=== PATIENT | female | born 1985 ===

== ENCOUNTER 2017-06-27 17:01 | Emergency (ER) | payer OTHER ==
[2017-06-27 17:16] VITALS: BMI 32.2
[2017-06-27 17:21] VITALS: TEMP 97.7; O2SAT 100
--- NOTE | 2017-06-27 17:31 | ED PDOC ---
Arrival/HPI - General Chief Complaint: Abdominal Pain Time Seen by Provider: 06/27/17 17:25 Historian: Patient - History of Present Illness Narrative History of Present Illness (Text): 06/27/17 17:26 32 y/o female, no significant pmh, nkda, approx. 4-5 weeks with LMP , c/o lower pelvic cramp and lower back pain x 1 week with no fall or trauma. Aching and cramping sensation, no sexual activities for the past 4 weeks, no vaginal bleeding or discharge, no blood clots, no chest pain or shortness or breath, no other medical or psychological complaints. Past Medical History - Provider Review Nursing Documentation Reviewed: Yes - Infectious Disease Hx of Infectious Diseases: None - Psychiatric Hx Substance Use: No - Anesthesia Hx Anesthesia: No Family/Social History - Physician Review Nursing Documentation Reviewed: Yes Family/Social History: Unknown Family HX Smoking Status: Never Smoked Hx Alcohol Use: Yes (drinking today) Hx Substance Use: No Allergies/Home Meds Allergies/Adverse Reactions: Allergies No Known Allergies Allergy (Verified 09/15/16 00:44) Home Medications: Home Meds Medication Instructions Recorded Confirmed Vit Calc,Iron,Folic 1 tab PO DAILY 06/27/17 06/27/17 [ Vitamins] Review of Systems - Review of Systems Constitutional: absent: Fatigue, Fevers Eyes: absent: Vision Changes ENT: absent: Hearing Changes Respiratory: absent: SOB, Cough Cardiovascular: absent: Chest Pain Gastrointestinal: absent: Abdominal Pain, Diarrhea, Nausea, Vomiting Genitourinary Female: Other (pelvic cramp) Musculoskeletal: absent: Arthralgias, Myalgias Skin: absent: Rash, Pruritis Neurological: absent: Headache, Dizziness Physical Exam Vital Signs Temp Pulse Resp BP Pulse Ox 06/27/17 21:02 73 14 109/57 L 100 06/27/17 17:18 97.7 F 84 18 104/69 100 Temperature: Afebrile Blood Pressure: Normal Pulse: Regular Respiratory Rate: Normal Appearance: Positive for: Well-Appearing, Non-Toxic, Comfortable Pain Distress: Mild Mental Status: Positive for: Alert and Oriented X 3 - Systems Exam Head: Present: Atraumatic, Normocephalic Pupils: Present: PERRL Extroacular Muscles: Present: EOMI Conjunctiva: Present: Normal Mouth: Present: Moist Mucous Membranes Neck: Present: Normal Range of Motion Respiratory/Chest: Present: Clear to Auscultation, Good Air Exchange. No: Respiratory Distress, Accessory Muscle Use Cardiovascular: Present: Regular Rate and Rhythm, Normal S1, S2. No: Murmurs Abdomen: Present: Normal Bowel Sounds. 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 No: Vaginal Discharge, Vaginal Bleeding, Vaginal Lesions, Adenexal Tenderness, Adenexal Mass, Cervical Motion Tendernes, Odor Back: Present: Normal Inspection Upper Extremity: Present: Normal Inspection. No: Cyanosis, Edema Lower Extremity: Present: Normal Inspection. No: Edema Neurological: Present: GCS=15, Speech Normal, Motor Func Grossly Intact, Gait Normal, Memory Normal Skin: Present: Warm, Dry, Normal Color. No: Rashes Psychiatric: Present: Alert, Oriented x 3, Normal Insight, Normal Concentration Medical Decision Making ED Course and Treatment: 06/27/17 17:36 -labs/ua/type and screen -transvaginal sonogram -Tylenol 650 mg po -observe and reassess 06/27/17 22:14 -Labs are non significant -UA show no UTI, -Beta hcg correlated with 4-6 week of -Sonogram show single intrauterine -Pain resolved, pt. feels better, no vaginal bleeding -Blood type O+ -Discharge home with tylenol, stay hydrated, bed rest, follow up with your own pmd and obgyn within 2 days, return to the ER for any new or worsening signs or symptoms. - Lab Interpretations Lab Results: 06/27/17 17:55 06/27/17 17:55 Lab Results 06/27/17 21:40: Urine Color Yellow, Urine Appearance Clear, Urine pH 6.5, Ur Specific [place] 1.010, Urine Protein Negative, Urine Glucose (UA) Negative, Urine Ketones Negative, Urine Blood Negative, Urine Nitrate Negative, Urine Bilirubin Negative, Urine Urobilinogen 0.2, Ur Leukocyte Esterase Negative, Urine HCG, Qual Positive 06/27/17 17:55: Blood Type O POSITIVE, Antibody Screen Negative, BBK History Checked No verified bt 06/27/17 17:55: Beta HCG, Quant [id number] H 06/27/17 17:55: Sodium 140, Potassium 3.6, Chloride 104, Carbon Dioxide 26, Anion Gap 14, BUN 7, Creatinine 0.8, Est GFR ( Amer) > 60, Est GFR (Non- Af Amer) > 60, Random Glucose 91, Calcium 9.0, Total Bilirubin 0.7, AST 25, ALT 26, Alkaline Phosphatase 64, Total Protein 7.3, Albumin 4.3, Globulin 3.0, Albumin/Globulin Ratio 1.4 06/27/17 17:55: WBC 9.0, RBC 3.91, Hgb 12.5, Hct 35.8 L, MCV 91.6, MCH 32.0, MCHC 34.9, RDW 12.4, Plt Count 179, MPV 11.0, Gran % 61.4, Lymph % (Auto) 32.5, [place] % (Auto) 5.5, Eos % (Auto) 0.4 L, Baso % (Auto) 0.2, Gran # 5.51, Lymph # 2.9, [place] # 0.5, Eos # 0.0, Baso # 0.02 I have reviewed the lab results: Yes Interpretation: No clinic. lab abnormalty - RAD Interpretation Radiology Orders: 06/27/17 17:45 OB TRANSVAGINAL [US] Routine TECHNIQUE: Real-time transvaginal obstetrical ultrasound of the maternal pelvis and a first trimester with image documentation. Transvaginal imaging was used for better evaluation of the fetus and adnexa. EXAM DATE/TIME: 06/27/2017 5:45 PM COMPARISON: There are no prior studies for comparison. FINDINGS: Gestation: There is a single gestational sac in the uterus. Gestational sac has mean diameter 7.1 mm. A yolk sac is present, internal diameter measures 1 mm. A pole is not identified. A Uterus/cervix: There is a 1.1 x 1 x 1 cm posterior fibroid. Ovaries: Left ovary measures 3.16 x 2.3 x 2.8 cm. There is a corpus luteum the left ovary. Right ovary measures 2.85 x 1.65 x 2.33 cm. There are multiple follicles in the right ovary.There is flow in both ovaries on Doppler imaging. Free fluid: There is trace free fluid IMPRESSION: Single intrauterine gestation too early to date Thank you for allowing us to participate in the care of your patient. Dictated and Authenticated by: Maureen Daniel MD 06/27/2017 9:22 PM Eastern Time ([place] & [place]) Visitor Service Assistant: Radiologist - Medication Orders Current Medication Orders: Discontinued Medications Acetaminophen (Tylenol 325mg Tab) 650 mg PO STAT STA Stop: 06/27/17 17:34 Last Admin: 06/27/17 18:19 Dose: 650 mg - PA / MOUNTAIN GUIDE / Resident Statement MD/DO has reviewed & agrees with the documentation as recorded. Disposition/Present on Arrival - Present on Arrival Any Indicators Present on Arrival: No History of DVT/PE: No History of Uncontrolled Diabetes: No Urinary Catheter: No History of Decub. Ulcer: No History Surgical Site Infection Following: None - Disposition Have Diagnosis and Disposition been Completed?: Yes Diagnosis: Pelvic pain, Disposition: HOME/ ROUTINE Disposition Time: 19:47 Patient Plan: Discharge Condition: IMPROVED Additional Instructions: -Discharge home with tylenol, stay hydrated, bed rest, follow up with your own pmd and obgyn within 2 days, return to the ER for any new or worsening signs or symptoms. Prescriptions: Acetaminophen [Tylenol 325mg tab] 2 tab PO QID PRN #30 tab PRN Reason: Other Referrals: Ebony Natarajan MD [Staff Provider] - Follow up with primary Forms: [employer] (Serbian), WORK NOTE
[2017-06-27 18:30] LABS: BASO # 0.02 K/mm3 (0.0-2.0); BASO % 0.2 % (0.0-3.0); EOS % 0.4 % (1.5-5.0); GRAN # 5.51 (1.4-6.5); GRAN % 61.4 % (50.0-68.0); HEMOGLOBIN 12.5 gm/dL (12.0-16.0); LYMPH # 2.9 (1.2-3.4); LYMPH % 32.5 % (22.0-35.0); MEAN CELL VOLUME 91.6 fL (80.0-105.0); MEAN CORPUSCULAR HGB CONC 34.9 g/dl (31.0-37.0); MONO # 0.5 (0.1-0.6); MONO % 5.5 % (1.0-6.0); PLATELET COUNT 179 10^3/uL (120.0-450.0); RBC 3.91 10^6/uL (3.5-6.1); RED CELL DISTRIBUTION WIDTH 12.4 % (11.5-14.5)
[2017-06-27 18:31] LABS: ALB/GLOB RATIO 1.4 (1.1-1.8); ALBUMIN 4.3 g/dL (3.0-4.8); ALT/SGPT 26 U/L (7-56); AST/SGOT 25 U/L (15-39); BLOOD UREA NITROGEN 7 mg/dL (7-21); GFR AFRICAN-AMERICAN > 60; GFR NON-AFRICAN AMERICAN > 60
--- NOTE | 2017-06-27 21:22 | US ---
EXAM: US First Trimester, Transabdominal US , Transvaginal CLINICAL HISTORY: 32 years old, female; Pain; complicated by abdominal or pelvic pain; Other: Cramping; Gestational age or lmp: Lmp 05/21/2017; ; Prior surgery; Surgery type: Ectopic 3 yrs go; Additional info: Approx. 4-5 weeks , C/O cramp TECHNIQUE: Real-time transabdominal and transvaginal obstetrical ultrasound of the maternal pelvis and a first trimester with image documentation. Transvaginal imaging was used for better evaluation of the fetus and adnexa. COMPARISON: There are no prior studies for comparison. FINDINGS: Gestation: There is a small gestational sac in the uterus difficult to characterize . Uterus: Uterus measures approximately 7.4 x 4.3 x 5.8 cm. Ovaries: Left ovary measures approximately 4.6 x 3.3 x 3.7 cm. Right ovary could not be identified Free fluid: No free fluid. IMPRESSION: Early intrauterine gestation difficult to characterize EXAM: US , Transvaginal CLINICAL HISTORY: 32 years old, female; Pain; complicated by abdominal or pelvic pain; Other: Cramping; Gestational age or lmp: Lmp 05/21/2017; ; Prior surgery; Surgery type: Ectopic 3 yrs go; Additional info: Approx. 4-5 weeks , C/O cramp TECHNIQUE: Real-time transvaginal obstetrical ultrasound of the maternal pelvis and a first trimester with image documentation. Transvaginal imaging was used for better evaluation of the fetus and adnexa. EXAM DATE/TIME: 06/27/2017 5:45 PM COMPARISON: There are no prior studies for comparison. FINDINGS: Gestation: There is a single gestational sac in the uterus. Gestational sac has mean diameter 7.1 mm. A yolk sac is present, internal diameter measures 1 mm. A pole is not identified. A Uterus/cervix: There is a 1.1 x 1 x 1 cm posterior fibroid. Ovaries: Left ovary measures 3.16 x 2.3 x 2.8 cm. There is a corpus luteum the left ovary. Right ovary measures 2.85 x 1.65 x 2.33 cm. There are multiple follicles in the right ovary.There is flow in both ovaries on Doppler imaging. Free fluid: There is trace free fluid IMPRESSION: Single intrauterine gestation too early to date
[2017-06-27 21:57] LABS: PH,URINE 6.5 (4.7-8.0); URINE APPEARANCE CLEAR (CLEAR); URINE BILIRUBIN NEGATIVE (NEGATIVE); URINE BLOOD NEGATIVE (NEGATIVE); URINE COLOR YELLOW (YELLOW); URINE GLUCOSE (UA) NEGATIVE (NEGATIVE); URINE LEUKOCYTE ESTERASE NEGATIVE Leu/uL (NEGATIVE); URINE NITRATE NEGATIVE (NEGATIVE); URINE PROTEIN NEGATIVE mg/dL (<30 mg/dL); URINE UROBILINOGEN 0.2 E.U./dL (<1 E.U./dL)
[2017-06-27 21:58] LABS: HCG,QUALITATIVE URINE POSITIVE (NEGATIVE)
[2017-06-27 22:00] VITALS: BP 109/57; PULSE 73; RESP 14
== END 2017-06-27 22:42 | disposition home or self-care (01) ==
LOC: ED 17:01
DX: O26.891 Other specified pregnancy related conditions, first trimester (principal); R10.2 Pelvic and perineal pain; Z3A.00 Weeks of gestation of pregnancy not specified

== ENCOUNTER 2017-07-21 10:51 | Emergency (ER) | payer OTHER ==
[2017-07-21 11:01] VITALS: BMI 25.4
[2017-07-21 11:05] VITALS: RESP 18; TEMP 99.1; O2SAT 99
[2017-07-21] MEDS ORDERED: Sodium Chloride 0.9% 1,000 ML IV STA (11:12)
--- NOTE | 2017-07-21 11:15 | ED PDOC ---
Arrival/HPI - General Chief Complaint: GI Problem Time Seen by Provider: 07/21/17 11:01 Historian: Patient - History of Present Illness Narrative History of Present Illness (Text): 07/21/17 11:12 A 32 year old female with , who denies any past medical history, presents to the emergency department complaining of a mild headache for 1 month. Patient notes nausea and non-bilious non-bloody vomiting for last few days, occuring several times per day. 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 Patient denies any fever, chills, diarrhea, abdominal pain, urinary symptoms, vaginal bleeding/discharge, chest pain, shortness of breath or any other complaints. 07/21/17 14:46 Time/Duration: Other (1 month) Symptom Course: Unchanged Quality: Other Context: Home Past Medical History - Provider Review Nursing Documentation Reviewed: Yes - Infectious Disease Hx of Infectious Diseases: None - Psychiatric Hx Substance Use: No - Anesthesia Hx Anesthesia: No Family/Social History - Physician Review Nursing Documentation Reviewed: Yes Family/Social History: No Known Family HX Smoking Status: Never Smoked Hx Alcohol Use: Yes Hx Substance Use: No Allergies/Home Meds Allergies/Adverse Reactions: Allergies No Known Allergies Allergy (Verified 09/15/16 00:44) Home Medications: Home Meds Medication Instructions Recorded Confirmed Vit Calc,Iron,Folic 1 tab PO DAILY 07/21/17 07/21/17 [ Vitamins] Review of Systems - Physician Review All systems were reviewed & negative as marked: Yes - Review of Systems Constitutional: absent: Fevers, Night Sweats Respiratory: absent: SOB Cardiovascular: absent: Chest Pain Gastrointestinal: Nausea, Vomiting. absent: Abdominal Pain, Diarrhea Genitourinary Female: absent: Dysuria, Frequency, Hematuria, Vaginal Bleeding, Vaginal Discharge Neurological: Headache Physical Exam Vital Signs Reviewed: Yes Vital Signs Temp Pulse Resp BP Pulse Ox 07/21/17 13:00 81 18 105/69 99 07/21/17 12:22 89 18 107/71 99 07/21/17 11:04 99.1 F 95 H 18 105/75 99 Temperature: Afebrile Blood Pressure: Normal Pulse: Tachycardic Respiratory Rate: Normal Appearance: Positive for: Well-Appearing, Non-Toxic, Comfortable Pain Distress: None Mental Status: Positive for: Alert and Oriented X 3 - Systems Exam Head: Present: Atraumatic, Normocephalic Pupils: Present: PERRL Extroacular Muscles: Present: EOMI Conjunctiva: Present: Normal Mouth: Present: Moist Mucous Membranes Pharnyx: No: ERYTHEMA, EXUDATE, TONSILS ENLARGED Neck: Present: Normal Range of Motion Respiratory/Chest: Present: Clear to Auscultation, Good Air Exchange. No: Respiratory Distress, Accessory Muscle Use Cardiovascular: Present: Regular Rate and Rhythm, Normal S1, S2. No: Murmurs Abdomen: Present: Normal Bowel Sounds. No: Tenderness, Distention, Peritoneal Signs Back: Present: Normal Inspection Upper Extremity: Present: Normal Inspection. No: Cyanosis, Edema Lower Extremity: Present: Normal Inspection. No: Edema Neurological: Present: GCS=15, CN II-XII Intact, Speech Normal Skin: Present: Warm, Dry, Normal Color. No: Rashes Psychiatric: Present: Alert, Oriented x 3, Normal Insight, Normal Concentration Medical Decision Making ED Course and Treatment: 07/21/17 11:12 Impression: A 32 year old female with presents with a mild headache and nausea for 1 month. Plan: -- OB Transvaginal ultrasound -- Labs -- Urinalysis -- Tylenol, Zofran and IV fluids -- Reassess and disposition Progress Notes: Report Date : 07/21/2017 12:39:40 PROCEDURE: OB Pelvic Ultrasound Dictator : Sierra Wolfe MD IMPRESSION: Single live intrauterine gestation with mean gestational age of 8 weeks and 3 days. Estimated date of delivery by ultrasound is 02/28/2018. There is a discrepancy with the clinical dates by approximately five weeks. Clinical correlation and follow-up is advised. 07/21/17 12:35 pt reassesed. able to take po. states feeling better. smiling in nad. neuro intact. pending us results, however already requesting d/c. 07/21/17 12:42 iup confirmed. due for outpt ob appt. advise outpt f/u and return precautions abd soft no ttp - Lab Interpretations Lab Results: 07/21/17 11:41 07/21/17 11:41 Lab Results 07/21/17 11:41: Beta HCG, Quant [id number] H 07/21/17 11:41: Sodium 139, Potassium 4.1, Chloride 104, Carbon Dioxide 23, Anion Gap 16, BUN 11, Creatinine 0.7, Est GFR ( Amer) > 60, Est GFR (Non- Af Amer) > 60, Random Glucose 78, Calcium 9.5, Total Bilirubin 0.9, AST 24, ALT 26, Alkaline Phosphatase 59, Total Protein 7.5, Albumin 4.6, Globulin 2.9, Albumin/Globulin Ratio 1.6 07/21/17 11:41: WBC 7.6, RBC 4.20, Hgb 13.7, Hct 38.2, MCV 91.0, MCH 32.6, MCHC 35.9, RDW 11.9, Plt Count 162, MPV 11.2 H, Gran % 74.2 H, Lymph % (Auto) 20.7 L , [place] % (Auto) 4.7, Eos % (Auto) 0.1 L, Baso % (Auto) 0.3, Gran # 5.63, Lymph # 1.6, [place] # 0.4, Eos # 0.0, Baso # 0.02 07/21/17 11:22: Urine Color Yellow, Urine Appearance Turbid, Urine pH 6.0, Ur Specific [place] >= 1.030, Urine Protein Trace H, Urine Glucose (UA) Negative, Urine Ketones >=80, Urine Blood Negative, Urine Nitrate Negative, Urine Bilirubin Small H, Urine Urobilinogen 4.0 H, Ur Leukocyte Esterase Negative, Urine RBC Negative, Urine WBC 0 - 2, Ur Epithelial Cells 10 - 12, Urine Bacteria Few, Urine HCG, Qual Positive I have reviewed the lab results: Yes - RAD Interpretation Radiology Orders: 07/21/17 11:12 OB TRANSVAGINAL [US] Stat - Medication Orders Current Medication Orders: Discontinued Medications Acetaminophen (Tylenol 325mg Tab) 975 mg PO STAT STA Stop: 07/21/17 11:13 Last Admin: 07/21/17 11:25 Dose: 975 mg Sodium Chloride (Sodium Chloride 0.9%) 1,000 mls @ 999 mls/hr IV .Q1H1M STA Stop: 07/21/17 12:12 Last Admin: 07/21/17 11:15 Dose: 999 mls/hr Ondansetron HCl (Zofran Inj) 4 mg IVP STAT STA Stop: 07/21/17 11:13 Last Admin: 07/21/17 11:25 Dose: 4 mg - Scribe Statement The provider has reviewed the documentation as recorded by the Becky Pascal Provider Becky Attestation: All medical record entries made by the Timothyibe were at my direction and personally dictated by me. I have reviewed the chart and agree that the record accurately reflects my personal performance of the history, physical exam, medical decision making, and the department course for this patient. I have also personally directed, reviewed, and agree with the discharge instructions and disposition. Disposition/Present on Arrival - Present on Arrival Any Indicators Present on Arrival: No History of DVT/PE: No History of Uncontrolled Diabetes: No Urinary Catheter: No History of Decub. Ulcer: No History Surgical Site Infection Following: None - Disposition Have Diagnosis and Disposition been Completed?: Yes Diagnosis: Threatened miscarriage, Hyperemesis gravidarum Disposition: HOME/ ROUTINE Disposition Time: 12:43 Condition: STABLE Discharge Instructions (ExitCare): Threatened Miscarriage (ED), Hyperemesis Gravidarum (ED) Print Language: POLISH Additional Instructions: please follow up with your doctor. return to er with worsening symptoms or concerns. Prescriptions: Ondansetron HCl [Zofran] 4 mg PO Q8 PRN #20 tablet PRN Reason: Nausea/Vomiting Referrals: Isabell Reed, [Primary Care Provider] - Follow up with primary Maurilio Ignacio [Medical Doctor] - Follow up with primary Forms: [employer] (Polish)
[2017-07-21 11:38] LABS: URINE APPEARANCE TURBID (CLEAR); URINE BILIRUBIN SMALL (NEGATIVE); URINE BLOOD NEGATIVE (NEGATIVE); URINE COLOR YELLOW (YELLOW); URINE GLUCOSE (UA) NEGATIVE (NEGATIVE); URINE KETONE >=80 mg/dL (NEGATIVE); URINE LEUKOCYTE ESTERASE NEGATIVE Leu/uL (NEGATIVE); URINE PROTEIN TRACE mg/dL (<30 mg/dL)
[2017-07-21 11:43] LABS: URINE RBC NEGATIVE /hpf (0-2); URINE WBC 0 - 2 /hpf (0-6)
[2017-07-21 11:44] LABS: URINE BACTERIA FEW (NEG)
[2017-07-21 11:52] LABS: BASO # 0.02 K/mm3 (0.0-2.0); BASO % 0.3 % (0.0-3.0); EOS % 0.1 % (1.5-5.0); GRAN # 5.63 (1.4-6.5); GRAN % 74.2 % (50.0-68.0); HEMATOCRIT 38.2 % (36.0-48.0); LYMPH # 1.6 (1.2-3.4); LYMPH % 20.7 % (22.0-35.0); MEAN CORPUSCULAR HEMOGLOBIN 32.6 pg (25.0-35.0); MEAN CORPUSCULAR HGB CONC 35.9 g/dl (31.0-37.0); MEAN PLATELET VOLUME 11.2 fl (7.0-11.0); MONO # 0.4 (0.1-0.6); MONO % 4.7 % (1.0-6.0); RED CELL DISTRIBUTION WIDTH 11.9 % (11.5-14.5); WHITE BLOOD COUNT 7.6 10^3/ul (4.5-11.0)
[2017-07-21 12:00] LABS: ALB/GLOB RATIO 1.6 (1.1-1.8); ALKALINE PHOSPHATASE 59 U/L (38-133); ALT/SGPT 26 U/L (7-56); AST/SGOT 24 U/L (15-39); BILIRUBIN,TOTAL 0.9 mg/dL (0.2-1.3); BLOOD UREA NITROGEN 11 mg/dL (7-21); CALCIUM 9.5 mg/dL (8.4-10.5); CARBON DIOXIDE 23 mmol/L (21-33); CHLORIDE 104 mmol/L (98-107); GFR AFRICAN-AMERICAN > 60; GLUCOSE,RANDOM 78 mg/dL (70-110); POTASSIUM 4.1 mmol/L (3.6-5.0); SODIUM 139 mmol/L (132-148); TOTAL PROTEIN 7.5 g/dL (5.8-8.3)
--- NOTE | 2017-07-21 12:41 | US ---
PROCEDURE: OB Pelvic Ultrasound HISTORY: Abdominal pain, COMPARISON: None available. FINDINGS: UTERUS: Gestational sac: Single intrauterine gestation. Heart rate: 163 bpm. age (Ultrasound estimated): 8 weeks and 3 days Johana-gestational hemorrhage: None. Date of delivery (Ultrasound estimated) : 02/28/2018 Uterus measures 7.7 x 6.8 x 6.4 cm. Anteverted and normal in size. No fibroid or other mass lesion seen. CERVIX: Long and closed. No cervical abnormality seen. RIGHT OVARY: Measures 2.6 x 2.0 x 3.0 cm. No mass lesion. Normal flow. LEFT OVARY: Measures 4.2 x 3.4 x 4.5 cm. No solid mass. Normal flow. There is a 2.8 x 2.1 x 2.6 cm complex cyst. FREE FLUID: None. OTHER FINDINGS: None. IMPRESSION: Single live intrauterine gestation with mean gestational age of 8 weeks and 3 days. Estimated date of delivery by ultrasound is 02/28/2018. There is a discrepancy with the clinical dates by approximately five weeks. Clinical correlation and follow-up is advised.
[2017-07-21 13:26] VITALS: BP 105/69; PULSE 81
== END 2017-07-21 13:27 | disposition home or self-care (01) ==
LOC: ED 10:51
DX: O21.0 Mild hyperemesis gravidarum (principal); O20.0 Threatened abortion; Z3A.08 8 weeks gestation of pregnancy
CPT/HCPCS: 76817; 80053; 81001; 84702; 84703; 85025; 96361; 96374; 99283; J2405; J7040